=== PATIENT | female | born 1975 | race Caucasian/White ===

== ENCOUNTER 2016-12-10 10:21 | Emergency (ER) | payer OTHER ==
[~2016-12-10] VITALS: Ht 157.5 cm; Wt 66.0 kg
[~2016-12-10 10:21] MED LIST: CARB200T16 PO; CLIN1CAP5 PO; IBUP800T23 PO; LORTA5 PO; PERC5TAB12 PO; PRAV40 PO; ST J81CH PO
[2016-12-10 10:28] VITALS: BP 112/84; PULSE 117; RESP 16; TEMP 98.6; O2SAT 94
[2016-12-10] MEDS ORDERED: ASPI81CH7 CHEW (10:34)
[2016-12-10] MEDS ORDERED: ALLERGY PILL (10:34)
[2016-12-10] MEDS ORDERED: TEGR200T PO (10:34)
[2016-12-10] MEDS ORDERED: PRAV40TA2 PO (10:34)
[2016-12-10] MEDS ORDERED: NAPR500T PO (11:15)
[2016-12-10] MEDS ORDERED: CLIN1CAP5 PO (11:15)
--- NOTE | 2016-12-10 11:21 | PD ---
HPI Chief Complaint: Oral / Dental Pain or Problem Time Seen by Provider: 11:16 Travel History International Travel<30 days: No Contact w/Intl Traveler<30days: No Traveled to known affect area: No History of Present Illness HPI 41-year-old female with a history of hyperlipidemia, CVA, seizure disorder presents to the emergency department for evaluation of right-sided dental pain and facial pain for 2 days. Patient admits that she has poor dentition. States that she has no upper teeth and wears dentures. States her dentures need to be refitted because they have been cutting into the side of her right upper mouth. States that she has a sore on the inside of her right upper mouth from where the dentures have aggravated the inner mucosa. States that she also has right lower dental pain that radiates to the right side of her face and her right ear. Denies any fever, chills, nausea, vomiting, difficulty swallowing. States that she has been using mouthwash for her symptoms. She has not taken anything for pain so far. No other complaints. Denies . PFSH Past Medical History Hx Anticoagulant Therapy: Yes (BABY ASA DAILY) Blood Disorders: No Cancer: No Cardiovascular Problems: Yes (CHOL) Cerebral Palsy: Yes High Cholesterol: Yes Cerebrovascular Accident: Yes (CVA) Diabetes: No Diminished Hearing: No Gastrointestinal Disorders: No Genitourinary: No Implanted Vascular Access Dvce: No Musculoskeletal: Yes (CP WITH RIGHT SIDE WEAKNESS) Neurologic: Yes Psychiatric: No Reproductive: No Respiratory: No Immunizations Current: Yes Seizures: Yes ?: Not Past Surgical History Abdominal Surgery: Yes Cholecystectomy: Yes Hysterectomy: No Tonsillectomy: Yes Other Surgery: Yes (RIGHT HAND) Social History Alcohol Use: No Tobacco Use: Yes (1/2-1PPD) Substance Use: No Allergies-Medications (Allergen,Severity, Reaction): Coded Allergies: Codeine (Verified Allergy, Severe, SOB, 12/10/16) CONFIRM? Penicillin (Verified Allergy, Severe, SOB, UNABLE TO BREATHE, 12/10/16) Reported Meds & Prescriptions Reported Meds & Active Scripts Active Reported [Allergy Pill] Pravastatin 40 Mg Tab 40 Mg PO DAILY Tegretol (Carbamazepine) 200 Mg Tab 200 Mg PO BID Aspirin Children's (Aspirin) 81 Mg Chew 81 Mg CHEW DAILY Review of Systems Except as stated in HPI: all other systems reviewed are Neg Physical Exam Narrative GENERAL: Well-nourished and well-developed pleasant female patient in no acute distress who is nontoxic appearing. SKIN: Warm and dry. HEAD: Normocephalic and atraumatic. No facial swelling. EYES: No injection, drainage, or hyphema noted. PERRLA. EOMI. ENT: No nasal drainage noted. Oropharynx is clear and the TMs are normal with good landmarks. DENTAL: Top teeth have all been pulled. Bottom teeth with multiple dental caries. There is an area of the right upper oral mucosa that is irritated and tender to touch. Right lower dentition with dental caries and mild erythema of the gingiva. No discharge or drainage, no abscess formation. NECK: Supple and the trachea is midline. CARDIOVASCULAR: Regular rate and rhythm. RESPIRATORY: Breath sounds are equal bilaterally with no accessory muscle use, wheezing, rhonchi, or crackles. NEUROLOGICAL: Awake, alert, and oriented. Normal speech and gait. Cranial nerves are grossly intact. Data Data Last Documented VS Vital Signs Date Time Temp Pulse Resp B/P Pulse Ox O2 Delivery O2 Flow Rate FiO2 12/10/16 10:28 98.6 117 16 112/84 94 MDM Medical Decision Making Medical Screen Exam Complete: Yes Emergency Medical Condition: Yes Differential Diagnosis Dental caries versus gingivitis versus poorly fitting dentures Narrative Course 41-year-old female presents to the emergency department for evaluation of right- sided dental pain. Patient is afebrile, vital signs are stable. She has poor dentition overall. Multiple dental caries throughout. We'll treat the patient with clindamycin and naproxen for pain. Instructed to follow-up as an outpatient with a dentist. Patient verbalizes understanding and agreement with treatment plan. Diagnosis Primary Impression: Pain due to dental caries Referrals: Dentist Patient Instructions: General Instructions Additional Instructions: Take medications as prescribed with food and a full glass of water. Follow-up with your dentist. Return to the ED for any acute worsening of symptoms. Med/Other Pt SpecificInfo: Prescription(s) given Scripts Naproxen 500 Mg [id number] Mg PO BID 7 Days Ref 0 Prov:Antionette Baron DO 12/10/16 Clindamycin 150 Mg [id number] Mg PO Q8HR 10 Days Ref 0 Prov:Antionette Baron DO 12/10/16 Disposition: 01 DISCHARGE HOME Condition: Stable Jena Diaz Dec 10, 2016 11:21
== END 2016-12-10 11:25 | disposition home or self-care (01) ==
LOC: PHEFT 10:21
DX: K02.9 Dental caries, unspecified (principal); K08.89 Other specified disorders of teeth and supporting structures; E78.5 Hyperlipidemia, unspecified; F17.200 Nicotine dependence, unspecified, uncomplicated; G80.9 Cerebral palsy, unspecified; Z79.82 Long term (current) use of aspirin; Z86.79 Personal history of other diseases of the circulatory system; Z86.69 Personal history of other diseases of the nervous system and sense organs; Z87.39 Personal history of other diseases of the musculoskeletal system and connective tissue
CPT/HCPCS: 99282

== ENCOUNTER 2017-06-15 12:05 | Emergency (ER) | payer OTHER ==
[~2017-06-15] VITALS: Ht 157.5 cm; Wt 67.0 kg
[~2017-06-15 12:05] MED LIST changes: +ALLERGY PILL; +ASPI81CH7 CHEW; -CARB200T16 PO; -IBUP800T23 PO; -LORTA5 PO; +NAPR500T PO; -PERC5TAB12 PO; -PRAV40 PO; +PRAV40TA2 PO; -ST J81CH PO; +TEGR200T PO
[2017-06-15 12:12] VITALS: BP 118/62; PULSE 109; RESP 16; TEMP 98.6; O2SAT 96
--- NOTE | 2017-06-15 13:05 | PD ---
HPI Chief Complaint: Skin Problem Time Seen by Provider: 12:45 Travel History International Travel<30 days: No Contact w/Intl Traveler<30days: No Traveled to known affect area: No History of Present Illness HPI 42-year-old female presents to the emergency department complaining of pain to her left index finger tip for 1 day. States that yesterday it just started hurting without inciting events. She had dirt in the nail bed and tried to clean it out however, it only increased in swelling and tenderness. States that her finger is developing pain distal to the fingertip that she does have sensation and full range of motion. She denies fever, chills, chest pain, shortness of breath. 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 Her right hand is contracted secondary to cerebral palsy PFSH Past Medical History Hx Anticoagulant Therapy: Yes Blood Disorders: No Cancer: No Cardiovascular Problems: Yes (CHOL) Cerebral Palsy: Yes High Cholesterol: Yes Cerebrovascular Accident: Yes Diabetes: No Diminished Hearing: No Gastrointestinal Disorders: No Genitourinary: No Implanted Vascular Access Dvce: No Musculoskeletal: Yes (CP WITH RIGHT SIDE WEAKNESS) Neurologic: Yes Psychiatric: No Reproductive: No Respiratory: No Immunizations Current: Yes Seizures: Yes ?: Not Past Surgical History Abdominal Surgery: Yes Cholecystectomy: Yes Hysterectomy: No Tonsillectomy: Yes Other Surgery: Yes (RIGHT HAND) Social History Alcohol Use: No Tobacco Use: Yes (1/2-1PPD) Substance Use: No Allergies-Medications (Allergen,Severity, Reaction): Coded Allergies: codeine (Unverified Allergy, Severe, SOB, 06/15/17) CONFIRM? penicillin G (Unverified Allergy, Severe, SOB, UNABLE TO BREATHE, 06/15/17 ) Reported Meds & Prescriptions Reported Meds & Active Scripts Active Bactrim DS (Sulfamethoxazole-Trimethoprim) 800-160 Mg Tab 1 Tab PO BID Reported Pravastatin 40 Mg Tab 40 Mg PO DAILY Tegretol (Carbamazepine) 200 Mg Tab 200 Mg PO BID Aspirin Children's (Aspirin) 81 Mg Chew 81 Mg CHEW DAILY Review of Systems Except as stated in HPI: all other systems reviewed are Neg Physical Exam Narrative GENERAL: Well-nourished, well-developed patient. SKIN: Focused skin assessment warm/dry. HEAD: Normocephalic. EYES: No scleral icterus. No injection or drainage. NECK: Supple, trachea midline. No JVD or lymphadenopathy. CARDIOVASCULAR: Regular rate and rhythm without murmurs, gallops, or rubs. RESPIRATORY: Breath sounds equal bilaterally. No accessory muscle use. Left index finger- medial aspect of the nail bed erythematous with a white area.. Tenderness palpation from the site to MCP. Neurovascularly intact MUSCULOSKELETAL: No cyanosis, or edema. BACK: Nontender without obvious deformity. No CVA tenderness. Data Data Last Documented VS Vital Signs Date Time Temp Pulse Resp B/P (MAP) Pulse Ox O2 Delivery O2 Flow Rate FiO2 06/15/17 12:12 98.6 109 16 118/62 (80) 96 Orders Orders Lidocaine 1% Inj (50 Ml) (Xylocaine 1% I (06/15/17 13:15) Wound Care (06/15/17 13:51) Wound Culture And Gram Stain (06/15/17 13:52) MDM Medical Decision Making Medical Screen Exam Complete: Yes Emergency Medical Condition: Yes Differential Diagnosis Left index finger felon versus sialitis versus paronychia Narrative Course 42-year-old female presents to the emergency department for left index finger pain for 1 day. States that she thought she had some dirt in her nail and tried to take it out however this did not help her. She works at home taking care of her children and her . Physical exam demonstrates there is tenderness to palpation of the distal left index finger near the medial aspect of the nailbed. The area is erythematous with a blanched area consistent with a paronychia. Neurovascular intact I&D performed of the finger and culture obtained. Pt be discharged home with Bactrim. Advised follow-up with primary care physician within 2 days, advised on wound care. Procedures Procedure Narrative INCISION AND DRAINAGE OF ABSCESS: The area was prepped and was sterilely draped. A digital block was performed using 1% lidocaine. A number 11 scalpel was used to make a 3 mm incision. 1 mm and parallel to the nail bed. The abscess was drained. Cultures were obtained. Sterile dressing applied. Patient advised to replace stressing within 1 day. Diagnosis Primary Impression: Paronychia of finger Qualified Codes: L03.012 - Cellulitis of left finger Referrals: Hand Surgeon Primary Care Physician Additional Instructions: Keep area clean and dry. Replace the dressings tomorrow Cover for 3 days before allowing to open and air dry Return to her primary care physician for further follow-up. If he developed increased swelling, pain, or redness return to the emergency department for further treatment. Scripts Sulfamethoxazole-Trimethoprim (Bactrim DS) 800-160 Mg Tab 1 TAB PO BID for Infection, #14 TAB 0 Refills Prov: Mickey Mckenzie MD 06/15/17 Disposition: 01 DISCHARGE HOME Condition: Stable Eva Sarmiento Jun 15, 2017 13:05
[2017-06-15] MEDS ORDERED: LIDOCAINE HCL 1% 50 ML VIAL INFIL ONE (13:15)
[2017-06-15] MEDS ORDERED: BACT800T5 PO (13:51)
== END 2017-06-15 14:13 | disposition home or self-care (01) ==
LOC: PHED 12:05 → PHEFT 14:13
DX: L03.012 Cellulitis of left finger (principal); B96.20 Unspecified Escherichia coli [E. coli] as the cause of diseases classified elsewhere; G80.9 Cerebral palsy, unspecified; Z79.01 Long term (current) use of anticoagulants; Z72.0 Tobacco use
CPT/HCPCS: 10060; 87070; 87077; 87186; 87205